=== PATIENT | female | born 1950 | race Caucasian/White ===

== ENCOUNTER 2016-08-01 10:18 | Outpatient (CLI) | payer MEDICARE, OTHER | END 2016-08-01 10:19 | disposition home or self-care (01) | DX: E04.2 Nontoxic multinodular goiter (principal) ==

== ENCOUNTER 2016-09-15 10:26 | Outpatient (CLI) | payer MEDICARE, OTHER | END 2016-09-15 10:27 | disposition home or self-care (01) | DX: E78.5 Hyperlipidemia, unspecified (principal); R73.01 Impaired fasting glucose; Z13.6 Encounter for screening for cardiovascular disorders; R53.83 Other fatigue; R19.6 Halitosis ==

== ENCOUNTER 2017-02-03 14:42 | Emergency (ER) | payer MEDICARE, OTHER ==
--- NOTE | 2017-02-03 16:13 | XRAY Preliminary Report ---
Exam: XR Femur 2V LT IMPRESSION: Negative left femur. [facility] SITE ID: [id number]
--- NOTE | 2017-02-03 16:15 | XRAY Report ---
EXAM: LEFT FEMUR RADIOGRAPHY EXAM DATE: 02/03/2017 04:05 PM. CLINICAL HISTORY: Injury swelling . COMPARISON: None. TECHNIQUE: 2 views. FINDINGS: Bones: No fracture or bony destruction. Joints: The visualized hip and knee joints are normal. No effusions. Soft Tissues: Normal. No soft tissue swelling. IMPRESSION: Negative left femur. [facility] Referring Provider Line: [phone] SITE ID: [id number]
--- NOTE | 2017-02-03 17:02 | ED Physician Documentation ---
PD HPI LOWER EXT INJURY - Stated complaint Stated Complaint: GLF LT LEG/ARM - Chief complaint Chief Complaint: Ext Problem - History obtained from History obtained from: Patient - History of Present Illness PD HPI LOW EXT INJURY LOCATION: Left, Upper leg, Ankle Type of injury: Fall (she was looking up at gutters as she was standing on deck , lost balance and fell hard on railing striking thigh initially.) Where injury occurred: Home Timing - onset: Today Associated symptoms: Weakness Contributing factors: No: Anticoagulated, Prior ortho surgery Similar symptoms before: No diagnosis Recently seen: Not recently seen Review of Systems Constitutional: denies: Fever, Chills Eyes: reports: Photophobia Ears: reports: Loss of hearing Nose: reports: Congestion. denies: Rhinorrhea / runny nose : denies: Dysuria, Frequency Neurologic: reports: Generalized weakness, Numbness, Head injury, Reviewed and negative. denies: Focal weakness Psychiatric: denies: Depressed Endocrine: denies: Polyuria PD PAST MEDICAL HISTORY - Past Medical History Cardiovascular: High cholesterol Endocrine/Autoimmune: HyPOthyroidism - Past Surgical History Past Surgical History: No - Present Medications Home Medications: Ambulatory Orders Medication Instructions Recorded Confirmed Atorvastatin Calcium [Lipitor] 20 mg PO DAILY 03/16/13 03/16/13 Cetirizine [ZyrTEC] 10 mg PO DAILY 03/16/13 03/16/13 Fluticasone [Flonase] 1 sprays FABIAN BID 03/16/13 03/16/13 Levothyroxine [Synthroid] 88 mcg PO DAILY 03/16/13 03/16/13 Omeprazole 10 mg PO DAILY 03/16/13 03/16/13 Ondansetron Odt [Zofran] 4 mg TL Q6H PRN #10 tablet 03/16/13 HYDROcod/ACETAM 5/325 [Ririe 5/325] 1 tab PO Q6H PRN #15 tablet 02/03/17 - Allergies Allergies/Adverse Reactions: Allergies Allergy/AdvReac Type Severity Reaction Status Date / Time Sulfa (Sulfonamide Allergy Rash Verified 02/03/17 15:00 Antibiotics) promethazine HCl * AdvReac Hallucinati Verified 02/03/17 15:00 [From Phenergan] ons - Social History Does the pt smoke?: No Smoking Status: Never smoker Does the pt drink ETOH?: Yes Does the pt have substance abuse?: No - Immunizations Immunizations are current?: No - POLST Patient has POLST: No PD ED PE NORMAL - Vitals Vital signs reviewed: Yes - General General: Alert and oriented X 3, Well developed/nourished - HEENT HEENT: Dentition benign - Neck Neck: Supple, no meningeal sign, No bony TTP, Thyroid normal, No bruit - Cardiac Cardiac: No murmur Results - Vitals Vitals: Oxygen O2 Source Room air - Rads (name of study) left thigh Radiology: Prelim report reviewed (no fractures) left foot Radiology: Prelim report reviewed (no fractures) PD MEDICAL DECISION MAKING - ED course Complexity details: reviewed results, considered differential, d/w patient Departure - Departure Disposition: 01 Home, Self Care Clinical Impression: Accidental fall Qualifiers: Encounter type: initial encounter Qualified Code(s): W19.XXXA - Unspecified fall, initial encounter Contusion, thigh Qualifiers: Encounter type: initial encounter Laterality: left Qualified Code(s): S70.12XA - Contusion of left thigh, initial encounter Contusion, foot Qualifiers: Encounter type: initial encounter Laterality: left Qualified Code(s): S90.32XA - Contusion of left foot, initial encounter Condition: Stable Record reviewed to determine appropriate education?: Yes Instructions: ED Contusion Lower Ext Prescriptions: HYDROcod/ACETAM 5/325 [Ririe 5/325] 1 tab PO Q6H PRN #15 tablet PRN Reason: Pain Comments: No fracture seen on x-ray. The contusions will hurt for several days to week or so. They likely will bruise around the injuries more and on the thigh might even show up around the knee area to gravity. Ice and cold towels to the area periodically tonight and tomorrow. Activity as able. Tylenol or ibuprofen as needed for pains. Add hydrocodone if needed. This should less over the first couple of days as the swelling goes down. Discharge Date/Time: 02/03/17 18:26
--- NOTE | 2017-02-03 17:38 | XRAY Preliminary Report ---
Exam: XR Ankle 3 View LT IMPRESSION: Soft tissue swelling. [facility] SITE ID: [id number]
[2017-02-03] MEDS ORDERED: HYDROcod/ACETAM 5/325 MG TABLET PO STA (17:41)
--- NOTE | 2017-02-03 17:41 | XRAY Report ---
EXAM: LEFT ANKLE RADIOGRAPHY EXAM DATE: 02/03/2017 05:23 PM. CLINICAL HISTORY: Fall, pain. COMPARISON: None. TECHNIQUE: 3 views. FINDINGS: Bones: Osteopenia. Mid to distal tibial cortical thickening most likely due to old fracture, incomple tely seen. No acute fracture or other bone lesion. Joints: Symmetrical mortise. No definite effusion. Soft Tissues: Mild soft tissue swelling over the malleoli, especially lateral malleolus. IMPRESSION: Soft tissue swelling. [facility] Referring Provider Line: [phone] SITE ID: [id number]
[2017-02-03 18:20] VITALS: BP 135/89
[2017-02-03] MEDS ORDERED: HYDROcod/ACETAM 5/325 MG TABLET ONE (18:25)
== END 2017-02-03 18:26 | disposition home or self-care (01) ==
LOC: ED 14:42
DX: S70.12XA Contusion of left thigh, initial encounter (principal); S90.32XA Contusion of left foot, initial encounter; W18.30XA Fall on same level, unspecified, initial encounter; Y93.89 Activity, other specified; Y92.007 Garden or yard of unspecified non-institutional (private) residence as the place of occurrence of the external cause; E78.00 Pure hypercholesterolemia, unspecified; E03.9 Hypothyroidism, unspecified
CPT/HCPCS: 73552; 73610; 99283; A9270

== ENCOUNTER 2017-06-08 08:00 | Outpatient (CLI) | payer MEDICARE, OTHER ==
[2017-06-08 18:07] LABS: BILIRUBIN,URINE NEGATIVE (NEGATIVE); GLUCOSE, URINE (UA) NEGATIVE (NEGATIVE); KETONES,URINE (UA) NEGATIVE (NEGATIVE); LEUKOCYTE ESTERASE, URINE MODERATE (NEGATIVE); NITRITE,URINE NEGATIVE (NEGATIVE); OCCULT BLOOD,URINE NEGATIVE (NEGATIVE); PH,URINE 5.5 PH (5.0-7.5); PROTEIN,URINE NEGATIVE (NEGATIVE); UROBILINOGEN,URINE 0.2 (NORMAL) E.U./dL (NORMAL)
[2017-06-08 18:12] LABS: BASOPHILS % (AUTO) 0.9 %; EOSINOPHILS # (AUTO) 0.2 10^3/uL (0.0-0.7); EOSINOPHILS % (AUTO) 3.4 %; LYMPHOCYTES # (AUTO) 2.1 10^3/uL (1.5-3.5); LYMPHOCYTES % (AUTO) 41.9 %; MEAN CORPUSCULAR HEMOGLOBIN 28.9 pg (27.0-31.0); MEAN CORPUSCULAR HGB CONC 33.3 g/dL (32.0-36.0); MEAN CORPUSCULAR VOLUME 86.7 fL (81.0-99.0); MEAN PLATELET VOLUME 8.7 fL (7.9-10.8); MONOCYTES # (AUTO) 0.4 10^3/uL (0.0-1.0); MONOCYTES % (AUTO) 8.9 %; NEUTROPHILS # (AUTO) 2.2 10^3/uL (1.5-6.6); NEUTROPHILS % (AUTO) 44.9 %; PLT - PLATELET COUNT 227 10^3/uL (130-450); RED BLOOD COUNT 4.51 10^6/uL (4.20-5.40); RED CELL DISTRIBUTION WIDTH 14.8 % (12.0-15.0); WHITE BLOOD COUNT 4.9 x10^3/uL (4.8-10.8)
[2017-06-08 18:14] LABS: BACTERIA,URINE Few /HPF (None Seen); CLARITY,URINE CLEAR (CLEAR); RBC,URINE 0-5 /HPF (0-5); SQUAMOUS EPITHELIAL CELL,UR FEW Squamous (<= Few)
[2017-06-08 18:52] LABS: ALBUMIN 4.4 g/dL (3.2-5.5); ALBUMIN/GLOBULIN RATIO 1.5 (1.0-2.2); ALKALINE PHOSPHATASE 42 IU/L (42-121); ALT ALANINE AMINOTRANSFERASE 40 IU/L (10-60); AST ASPARTATE AMINOTRANSFERASE 28 IU/L (10-42); BILIRUBIN,TOTAL 0.5 mg/dL (0.2-1.0); BUN - BLOOD UREA NITROGEN 16 mg/dL (6-20); CALCIUM 9.2 mg/dL (8.5-10.3); CARBON DIOXIDE - CO2 27 mmol/L (21-32); CHLORIDE 101 mmol/L (101-111); CHOL/HDL RATIO 3.7 (<4.4); CHOLESTEROL 240 mg/dL; CREATININE 0.8 mg/dL (0.4-1.0); GFR - MDRD 71 (>89); GLUCOSE 99 mg/dL (70-100); HDL CHOLESTEROL 65 mg/dL; LDL CHOLESTEROL,CALCULATED 140 mg/dL; LDL/HDL RATIO 2.2 (<4.4); SODIUM 136 mmol/L (135-145); TOTAL PROTEIN 7.3 g/dL (6.7-8.2); VLDL CHOLESTEROL 35 mg/dL
[2017-06-08 19:22] LABS: HB2 TOTAL 14.3 g/dL; HEMOGLOBIN A1C 0.55 g/dL; HEMOGLOBIN A1C % 5.7 % (4.6-6.2)
== END 2017-06-08 08:01 | disposition home or self-care (01) ==
LOC: LAB.S 08:00
PROVIDERS: ATTEND Nurse Practitioner Family
DX: R35.8 Other polyuria (principal); E78.5 Hyperlipidemia, unspecified; E03.9 Hypothyroidism, unspecified; R73.01 Impaired fasting glucose
CPT/HCPCS: 36415; 80053; 80061; 81001; 81003; 83036; 83721; 84443; 85025; 87086

== ENCOUNTER 2017-08-03 10:31 | Outpatient (CLI) | payer MEDICARE, OTHER | END 2017-08-03 10:32 | disposition home or self-care (01) | LOC: LAB.F 10:31 | PROVIDERS: ATTEND Internal Medicine Endocrinology, Diabetes & Metabolism | DX: E89.0 Postprocedural hypothyroidism (principal); E04.2 Nontoxic multinodular goiter | CPT/HCPCS: 36415; 84443 ==

== ENCOUNTER 2017-08-27 08:00 | Outpatient (CLI) | payer MEDICARE, OTHER ==
[2017-08-27 17:38] LABS: BILIRUBIN,URINE NEGATIVE (NEGATIVE); GLUCOSE, URINE (UA) NEGATIVE (NEGATIVE); KETONES,URINE (UA) NEGATIVE (NEGATIVE); LEUKOCYTE ESTERASE, URINE MODERATE (NEGATIVE); NITRITE,URINE NEGATIVE (NEGATIVE); OCCULT BLOOD,URINE NEGATIVE (NEGATIVE); PROTEIN,URINE NEGATIVE (NEGATIVE); UROBILINOGEN,URINE 0.2 (NORMAL) E.U./dL (NORMAL)
[2017-08-27 17:46] LABS: CLARITY,URINE CLEAR (CLEAR)
[2017-08-27 17:47] LABS: BACTERIA,URINE Rare /HPF (None Seen); CRYSTALS,URINE 11-25 Ca Oxalate /LPF; RBC,URINE 0-5 /HPF (0-5); SQUAMOUS EPITHELIAL CELL,UR MOD Squamous (<= Few)
== END 2017-08-27 08:01 | disposition home or self-care (01) ==
LOC: LAB.R 08:00
PROVIDERS: ATTEND Nurse Practitioner Family
DX: R35.8 Other polyuria (principal)
CPT/HCPCS: 81001; 87086

== ENCOUNTER 2017-12-11 12:28 | Outpatient (CLI) | payer MEDICARE, OTHER ==
[2017-12-11 18:03] LABS: THYROID STIMULATING HORMONE 1.34 uIU/mL (0.34-5.60)
[2017-12-11 18:05] LABS: FREE T4 (FREE THYROXINE) 0.95 ng/dL (0.58-1.64)
== END 2017-12-11 12:29 | disposition home or self-care (01) ==
LOC: LAB.F 12:28
PROVIDERS: ATTEND Internal Medicine Endocrinology, Diabetes & Metabolism
DX: E03.9 Hypothyroidism, unspecified (principal); E04.2 Nontoxic multinodular goiter
CPT/HCPCS: 36415; 84439; 84443

== ENCOUNTER 2018-06-04 09:28 | Outpatient (CLI) | payer MEDICARE, OTHER ==
[2018-06-04 18:29] LABS: BASOPHILS # (AUTO) 0.1 10^3/uL (0.0-0.1); BASOPHILS % (AUTO) 1.4 %; EOSINOPHILS # (AUTO) 0.3 10^3/uL (0.0-0.7); EOSINOPHILS % (AUTO) 6.3 %; HGB - HEMOGLOBIN 13.2 g/dL (12.0-16.0); MEAN CORPUSCULAR HEMOGLOBIN 30.1 pg (27.0-31.0); MEAN CORPUSCULAR VOLUME 91.3 fL (81.0-99.0); MEAN PLATELET VOLUME 8.2 fL (7.9-10.8); MONOCYTES # (AUTO) 0.4 10^3/uL (0.0-1.0); MONOCYTES % (AUTO) 9.6 %; NEUTROPHILS # (AUTO) 1.8 10^3/uL (1.5-6.6); NEUTROPHILS % (AUTO) 39.7 %; PLT - PLATELET COUNT 229 10^3/uL (130-450); RED BLOOD COUNT 4.39 10^6/uL (4.20-5.40); RED CELL DISTRIBUTION WIDTH 13.3 % (12.0-15.0); WHITE BLOOD COUNT 4.6 x10^3/uL (4.8-10.8)
[2018-06-04 19:12] LABS: ALBUMIN 4.4 g/dL (3.2-5.5); ALBUMIN/GLOBULIN RATIO 1.6 (1.0-2.2); ALKALINE PHOSPHATASE 44 IU/L (42-121); ALT ALANINE AMINOTRANSFERASE 52 IU/L (10-60); AST ASPARTATE AMINOTRANSFERASE 33 IU/L (10-42); BILIRUBIN,TOTAL 0.7 mg/dL (0.2-1.0); BUN - BLOOD UREA NITROGEN 17 mg/dL (6-20); CHOLESTEROL 206 mg/dL; CREATININE 0.8 mg/dL (0.4-1.0); GFR - MDRD 71 (>89); HDL CHOLESTEROL 68 mg/dL; LDL CHOLESTEROL,CALCULATED 115 mg/dL; LDL/HDL RATIO 1.7 (<4.4); TOTAL PROTEIN 7.1 g/dL (6.7-8.2); VLDL CHOLESTEROL 23 mg/dL
[2018-06-04 19:17] LABS: CALCIUM 9.2 mg/dL (8.5-10.3); CARBON DIOXIDE - CO2 28 mmol/L (21-32); CHLORIDE 101 mmol/L (101-111); GLUCOSE 114 mg/dL (70-100); SODIUM 136 mmol/L (135-145)
== END 2018-06-04 09:29 | disposition home or self-care (01) ==
LOC: LAB.F 09:28
PROVIDERS: ATTEND Nurse Practitioner Family
DX: E78.5 Hyperlipidemia, unspecified (principal); Z13.6 Encounter for screening for cardiovascular disorders; Z13.0 Encounter for screening for diseases of the blood and blood-forming organs and certain disorders involving the immune mechanism
CPT/HCPCS: 36415; 80053; 80061; 83721; 85025

== ENCOUNTER 2018-06-08 09:58 | Outpatient (CLI) | payer MEDICARE, OTHER ==
[2018-06-08 18:01] LABS: HB2 TOTAL 14.3 g/dL; HEMOGLOBIN A1C 0.55 g/dL; HEMOGLOBIN A1C % 5.7 % (4.6-6.2)
== END 2018-06-08 09:59 | disposition home or self-care (01) ==
LOC: LAB.F 09:58
PROVIDERS: ATTEND Nurse Practitioner Family
DX: R73.9 Hyperglycemia, unspecified (principal); E03.9 Hypothyroidism, unspecified
CPT/HCPCS: 36415; 83036; 84443

== ENCOUNTER 2018-09-06 15:05 | Outpatient (CLI) | payer MEDICARE, OTHER ==
[2018-09-06 18:58] LABS: ALBUMIN/GLOBULIN RATIO 1.7 (1.0-2.2); BILIRUBIN,TOTAL 0.9 mg/dL (0.2-1.0); CALCIUM 9.5 mg/dL (8.5-10.3); CREATININE 0.7 mg/dL (0.4-1.0); MAGNESIUM 2.3 mg/dL (1.7-2.8)
== END 2018-09-06 15:06 | disposition home or self-care (01) ==
LOC: LAB.F 15:05
PROVIDERS: ATTEND Nurse Practitioner Adult Health
DX: K21.0 Gastro-esophageal reflux disease with esophagitis (principal)
CPT/HCPCS: 36415; 80053; 82607; 83735

== ENCOUNTER 2018-09-09 10:34 | Outpatient (CLI) | payer MEDICARE, OTHER ==
[2018-09-09 17:32] LABS: HB2 TOTAL 13.7 g/dL; HEMOGLOBIN A1C 0.58 g/dL
== END 2018-09-09 10:35 | disposition home or self-care (01) ==
LOC: LAB.F 10:34
PROVIDERS: ATTEND Nurse Practitioner
DX: R73.01 Impaired fasting glucose (principal)
CPT/HCPCS: 36415; 83036

== ENCOUNTER 2019-03-11 14:20 | Outpatient (CLI) | payer MEDICARE, OTHER ==
[2019-03-11 19:27] LABS: HB2 TOTAL 13.3 g/dL; HEMOGLOBIN A1C 0.52 g/dL; HEMOGLOBIN A1C % 5.7 % (4.6-6.2)
== END 2019-03-11 14:21 | disposition home or self-care (01) ==
LOC: LAB.S 14:20
PROVIDERS: ATTEND Registered Nurse
DX: R73.9 Hyperglycemia, unspecified (principal)
CPT/HCPCS: 36415; 83036

== ENCOUNTER 2020-05-22 16:37 | Outpatient (CLI) | payer MEDICARE, OTHER ==
[2020-05-22] MEDS ORDERED: IOVERSOL 320 100 ML VIAL IVP ONE ×2 (16:57→20:34)
[2020-05-22] MEDS ORDERED: IOVERSOL 320 50 ML VIAL ONE (16:57)
[2020-05-22 17:07] LABS: BASOPHILS # (AUTO) 0.1 10^3/uL (0.0-0.1); BASOPHILS % (AUTO) 0.7 %; EOSINOPHILS % (AUTO) 0.3 %; HGB - HEMOGLOBIN 13.7 g/dL (12.0-16.0); LYMPHOCYTES # (AUTO) 1.7 10^3/uL (1.5-3.5); LYMPHOCYTES % (AUTO) 22.4 %; MEAN CORPUSCULAR HGB CONC 34.7 g/dL (32.0-36.0); MEAN CORPUSCULAR VOLUME 89.4 fL (81.0-99.0); MEAN PLATELET VOLUME 9.6 fL (7.9-10.8); MONOCYTES # (AUTO) 0.4 10^3/uL (0.0-1.0); MONOCYTES % (AUTO) 5.3 %; NEUTROPHILS # (AUTO) 5.2 10^3/uL (1.5-6.6); PLT - PLATELET COUNT 233 10^3/uL (130-450); RED BLOOD COUNT 4.42 10^6/uL (4.20-5.40); RED CELL DISTRIBUTION WIDTH 12.7 % (12.0-15.0); WHITE BLOOD COUNT 7.4 x10^3/uL (4.8-10.8)
[2020-05-22 17:17] LABS: ALBUMIN/GLOBULIN RATIO 1.8 (1.0-2.2); BILIRUBIN,TOTAL 1.2 mg/dL (0.2-1.0); CALCIUM 9.5 mg/dL (8.5-10.3); CREATININE 0.9 mg/dL (0.4-1.0); CRP - C-REACTIVE PROTEIN 1.2 mg/dL (0-1.0); TOTAL PROTEIN 7.8 g/dL (6.7-8.2)
--- NOTE | 2020-05-22 18:57 | CT Report ---
PROCEDURE: Abdomen/Pelvis W INDICATIONS: RT LOWER QUAD ABD PAIN CONTRAST: IV CONTRAST: Optiray 320 ml: 100 PO CONTRAST: Optiray 320 ml50 TECHNIQUE: After the administration of both oral and weight appropriate dose of intravenous contrast, 5 mm thick sections acquired from the diaphragms to the symphysis. 5 mm thick coronal and sagittal reformats w ere acquired. For radiation dose reduction, the following was used: automated exposure control, adj ustment of mA and/or kV according to patient size. COMPARISON: None. FINDINGS: Image quality: Excellent. ABDOMEN: Lung bases: Lung bases are clear. Heart size is normal. Solid organs: Liver and spleen are normal in size and enhancement. Diffuse hepatic steatosis. Gallbl adder contains multiple layering gallstones without CT evidence for acute cholecystitis. Specifically , no gallbladder wall thickening or pericholecystic stranding. Biliary system is non dilated. Pancr eas enhances normally. No adrenal nodules. Kidneys demonstrate normal size and enhancement, without hydronephrosis. Bilateral ureters are normal in course and caliber. Peritoneum and bowel: Scattered colonic diverticulosis without acute inflammatory changes. Bowel loop s demonstrate normal wall thickness and caliber. Normal appendix. No free fluid or air. Nodes and vessels: No retroperitoneal or mesenteric adenopathy by size criteria. Aorta and inferior vena cava are normal in size. Scattered atherosclerotic calcifications of the abdominal aorta and i liac vessels. Miscellaneous: No ventral hernias. PELVIS: Genitourinary: Bladder wall thickness is normal for degree of distention. Reproductive organs unrem arkable as imaged. Miscellaneous: No inguinal hernias or adenopathy. Bones: No suspicious bony lesions. No acute vertebral body compression fractures. Multilevel lumba r spondylosis. IMPRESSION: 1. CT abdomen and pelvis without acute abnormalities. 2. Cholelithiasis without CT evidence for acute cholecystitis. 3. Normal appendix. 4. Colonic diverticulosis without evidence for acute diverticulitis. 5. Hepatic steatosis. 6. Atherosclerotic calcifications of the abdominal aorta without aneurysmal dilatation. 7. Multilevel lumbar spondylosis. No acute osseous abnormality seen. Reviewed by: Apollo Cruz MD on 05/22/2020 5:56 PM AKST Approved by: Apollo Cruz MD on 05/22/2020 5:56 PM [place] Station ID: [id number]
[2020-05-22] MEDS ORDERED: IOVERSOL 320 50 ML VIAL PO ONE (20:34)
--- OUTSIDE RECORDS SUMMARY | 2020-05-23 04:53 | EXTERNAL MEDICAL SUMMARY RPT | Continuity of Care Document ---
:1950 Demographics Phone Unavailable Preferred Language Unknown Marital Status Unknown Catholic Affiliation Unknown Race Unknown Ethnic Group Unknown Author Organization [facility] Address [address] [phone] Phone Care Team Providers Name Role Phone MARY, DANIAL Unavailable Unavailable Problems date description facility 2020-05-22 16:37 RIGHT LOWER QUADRANT PAIN [facility] 2020-05-22 16:45 RIGHT LOWER QUADRANT PAIN [facility] 2020-05-22 17:45 RIGHT LOWER QUADRANT PAIN [facility] Allergies date description facility promethazine HCl * [facility] Sulfa (Sulfonamide Antibiotics) formerly [facility] Results Social History date description facility [id number]
== END 2020-05-22 16:38 | disposition home or self-care (01) ==
LOC: LAB 16:37 → DI 16:38
PROVIDERS: ATTEND Nurse Practitioner Family
DX: R10.31 Right lower quadrant pain (principal); K80.20 Calculus of gallbladder without cholecystitis without obstruction; K76.0 Fatty (change of) liver, not elsewhere classified; K57.30 Diverticulosis of large intestine without perforation or abscess without bleeding; M47.816 Spondylosis without myelopathy or radiculopathy, lumbar region
CPT/HCPCS: 36415; 74177; 80053; 85025; 85651; 86140; Q9967

== ENCOUNTER 2020-05-24 13:04 | Emergency (ER) | payer MEDICARE, OTHER ==
[2020-05-24 14:14] LABS: BASOPHILS % (AUTO) 0.6 %; EOSINOPHILS # (AUTO) 0.1 10^3/uL (0.0-0.7); LYMPHOCYTES # (AUTO) 2.1 10^3/uL (1.5-3.5); LYMPHOCYTES % (AUTO) 30.7 %; MEAN CORPUSCULAR HEMOGLOBIN 31.1 pg (27.0-31.0); MEAN CORPUSCULAR HGB CONC 34.1 g/dL (32.0-36.0); MEAN CORPUSCULAR VOLUME 91.1 fL (81.0-99.0); MEAN PLATELET VOLUME 9.6 fL (7.9-10.8); MONOCYTES # (AUTO) 0.5 10^3/uL (0.0-1.0); MONOCYTES % (AUTO) 6.7 %; NEUTROPHILS # (AUTO) 4.2 10^3/uL (1.5-6.6); NEUTROPHILS % (AUTO) 60.9 %; PLT - PLATELET COUNT 216 10^3/uL (130-450); RED BLOOD COUNT 4.18 10^6/uL (4.20-5.40)
[2020-05-24 14:23] LABS: ALBUMIN 4.6 g/dL (3.2-5.5); ALBUMIN/GLOBULIN RATIO 1.6 (1.0-2.2); BILIRUBIN,TOTAL 0.8 mg/dL (0.2-1.0); CALCIUM 9.7 mg/dL (8.5-10.3); CREATININE 0.9 mg/dL (0.4-1.0); TOTAL PROTEIN 7.4 g/dL (6.7-8.2)
[2020-05-24] MEDS ORDERED: predniSONE 20 MG TABLET PO STA (16:24)
--- NOTE | 2020-05-24 16:33 | ED Physician Documentation ---
History of Present Illness - Stated complaint Stated Complaint: BACK PX - Chief complaint Chief Complaint: Abd Pain - Additonal information Additional information: 70-year-old female presents the emergency department for evaluation of right s ided abdominal hip and back pain. She presents very tearful and requesting an MRI of her lumbar spine she states that she has a history of an L4 compression fracture. She has been seen by her primary care provider and had a CT scan of her abdomen completed yesterday. It did show cholelithiasis without findings of cholecystitis. There was a normal appendix. No findings were otherwise found. Over the last 2 weeks this right-sided back and abdominal pain has gotten progressively worse. Typically worse when sitting it improves when she stands walks or lays flat in bed she did take some Dilaudid that was a leftover prescription without relief of pain. She is convinced that she has a neuropathic pain and has intermittently been taking ibuprofen occasional doses of gabapentin as well as Tylenol and Dilaudid without relief. She states that for a long time she saw a chiropractor as she had a difficulty with her puriform muscle and her right hip. She is unsure if this is related She denies any fevers dysuria urgency or frequency. She has no vomiting. She is hopeful that when she may get a prescription of steroids and follow-up with her primary care provider. She has no saddle anesthesia urinary incontinence. No history of cancer. In the room she is ambulating without any difficulty Review of Systems Constitutional: reports: Reviewed and negative Eyes: reports: Reviewed and negative Ears: reports: Reviewed and negative Nose: reports: Reviewed and negative Throat: reports: Reviewed and negative Cardiac: reports: Reviewed and negative Respiratory: reports: Reviewed and negative GI: reports: Abdominal Pain. denies: Nausea, Vomiting, Constipation, Diarrhea, Hematemesis : denies: Dysuria, Frequency, Hesitancy Skin: denies: Rash, Lesions Musculoskeletal: reports: Back pain. denies: Extremity pain, Joint pain PD PAST MEDICAL HISTORY - Past Medical History Cardiovascular: High cholesterol Endocrine/Autoimmune: HyPOthyroidism - Past Surgical History Past Surgical History: No - Present Medications Home Medications: Ambulatory Orders Medication Instructions Recorded Confirmed Atorvastatin Calcium [Lipitor] 20 mg PO DAILY 03/16/13 05/24/20 Cetirizine [ZyrTEC] 10 mg PO DAILY 03/16/13 05/24/20 Fluticasone [Flonase] 1 sprays FABIAN BID 03/16/13 05/24/20 Levothyroxine [Synthroid] 88 mcg PO DAILY 03/16/13 05/24/20 Omeprazole 10 mg PO DAILY 03/16/13 05/24/20 predniSONE [Deltasone] 40 mg PO DAILY #8 tab 05/24/20 - Allergies Allergies/Adverse Reactions: Allergies Allergy/AdvReac Type Severity Reaction Status Date / Time Sulfa (Sulfonamide Allergy Rash Verified 05/24/20 13:07 Antibiotics) promethazine HCl * AdvReac Hallucinati Verified 05/24/20 13:07 [From Phenergan] ons - Social History Does the pt smoke?: No Smoking Status: Never smoker Does the pt drink ETOH?: Yes Does the pt have substance abuse?: No - Immunizations Immunizations are current?: No - POLST Patient has POLST: No PD ED PE EXPANDED - General General: Alert, Anxious (crying) - Neck Neck: Supple w/out meningeal sx. No: Adenopathy - Cardiac Cardiac: Regular Rate, Regular Rhythm, Radial strong equal, Pedal strong equal, Cap refill < 2 sec - Respiratory Respiratory: Clear to ausultation bindu. No: Distress, Labored - Abdomen Abdomen: Normal Bowel sounds. No: Tender to palpation - Back Back: Soft tissue tenderness (Unable to elicit any midline thoracic or lumbar vertebral tenderness. Mild right paraspinous tenderness elicited. Patient has a normal unassisted gait.). No: Vertebral tenderness, Straight leg raise + R, Straight leg raise + L - Derm Derm: Normal color. No: Rash - Extremities Extremities: Normal. No: Deformity, Tenderness - Neuro Neuro: Alert and Oriented X 3, CNII-XII intact - GCS Eye Opening: Spontaneous Motor: Obeys Commands Verbal: Oriented Total: 15 Results - Vitals Vitals: Vital Signs - 24 hr 05/24/20 13:09 Temperature 36.8 C Heart Rate 60 Respiratory 18 Rate Blood Pressure 144/75 H O2 Saturation 99 Oxygen O2 Source Room air - Labs Labs: Laboratory Tests 05/24/20 05/24/20 14:05 14:05 WBC 7.0 RBC 4.18 L Hgb 13.0 Hct 38.1 MCV 91.1 MCH 31.1 H MCHC 34.1 RDW 13.0 Plt Count 216 MPV 9.6 Neut # (Auto) 4.2 Lymph # (Auto) 2.1 Baldwin # (Auto) 0.5 Eos # (Auto) 0.1 Baso # (Auto) 0.0 Absolute Nucleated RBC 0.00 Nucleated RBC % 0.0 Sodium 138 Potassium 4.4 Chloride 99 L Carbon Dioxide 28 Anion Gap 11.0 BUN 10 Creatinine 0.9 Estimated GFR (MDRD) 62 L Glucose 110 H Calcium 9.7 Total Bilirubin 0.8 AST 26 ALT 27 Alkaline Phosphatase 49 Total Protein 7.4 Albumin 4.6 Globulin 2.8 Albumin/Globulin Ratio 1.6 Lipase 38 PD MEDICAL DECISION MAKING - ED course Complexity details: reviewed results, re-evaluated patient, considered differential, d/w patient ED course: 70-year-old female presents to the emergency department for evaluation of right- sided back pain and right-sided abdominal pain. She underwent a CT scan yesterday that did not show any acute surgical findings. She reports a history of L4 compression fracture and was hoping to obtain an MRI here in the emergency department. However I was unable to elicit any back pain on my exam and she has no clinical red flags. unassisted walk/gait. She does report a longstanding history of piriform pain and has previously been seen by a chiropractor. She is concerned that she is having nerve pain from her compression fracture. Emergent MRI is not warranted today. She was given a shot of Toradol with marked relief of pain. I will write a prescription for a 4-day course of prednisone to be used at home. I do not feel that she would benefit from further use of the Dilaudid that she has been using at home. I have recommended her to follow-up with her primary care provider to discuss if a MRI of her lumbar spine is warranted in the future. Departure - Departure Disposition: Home, Self Care Clinical Impression: Abdominal pain Qualifiers: Abdominal location: right lower quadrant Qualified Code(s): R10.31 - Right lower quadrant pain Right-sided back pain Qualifiers: Back pain location: back pain in unspecified location Chronicity: acute Qualified Code(s): M54.9 - Dorsalgia, unspecified Condition: Stable Record reviewed to determine appropriate education?: Yes Follow-Up: DANIAL HERNANDEZ ARNP [Primary Care Provider] - Prescriptions: predniSONE [Deltasone] 40 mg PO DAILY #8 tab Comments: I hope that you are feeling better soon. You were seen today for right-sided back and abdominal pain. The CAT scan completed yesterday did not show any worrisome findings. Your labs today were all essentially normal. It is possible that you are having some nerve pain originating from your lumbar spine. However you may also be having some pain associated with your hip and piriformis muscle. You were given an injection of Toradol here in the emergency department. I would like you to take the prednisone daily for the next 4 days. While taking the prednisone do not take other medications such as ibuprofen Aleve naproxen or Advil. Once you finish the prednisone you may then resume taking that kind of medication. I would like you to see your primary care doctor in follow-up of this visit. An MRI of your spine is not indicated today but it may be as an outpatient. If at any point you have numbness or tingling between your legs, cannot control your bowel or bladder function, have fevers, uncontrolled vomiting, chest pain or shortness of breath please return to the ER for second look
[2020-05-24] MEDS ORDERED: KETOROLAC 60 MG/2 ML VIAL IM STA (17:09)
[2020-05-24 17:51] VITALS: BP 126/81
== END 2020-05-24 17:35 | disposition home or self-care (01) ==
LOC: ED 13:04
DX: M54.9 Dorsalgia, unspecified (principal); R10.31 Right lower quadrant pain
CPT/HCPCS: 36415; 80053; 83690; 85025; 96372; 99283; 99284; J7512

== ENCOUNTER 2020-09-12 12:06 | Outpatient (CLI) | payer MEDICARE, OTHER | END 2020-09-12 12:07 | disposition home or self-care (01) | LOC: LAB.S 12:06 | PROVIDERS: ATTEND Nurse Practitioner Family | DX: E03.9 Hypothyroidism, unspecified (principal) | CPT/HCPCS: 36415; 84443 ==

== ENCOUNTER 2020-09-20 09:01 | Outpatient (CLI) | payer MEDICARE, OTHER | END 2020-09-20 09:02 | disposition home or self-care (01) | LOC: LAB.S 09:01 | PROVIDERS: ATTEND Nurse Practitioner Family | DX: E88.81 Metabolic syndrome and other insulin resistance (principal); R53.83 Other fatigue | CPT/HCPCS: 36415; 80053; 83036; 85025; 86140 ==

== ENCOUNTER 2020-10-24 08:30 | Outpatient (CLI) | payer MEDICARE, OTHER ==
[2020-10-24 16:30] LABS: THYROID STIMULATING HORMONE 0.11 uIU/mL (0.34-5.60)
[2020-10-24 16:32] LABS: FREE T4 (FREE THYROXINE) 1.13 ng/dL (0.58-1.64)
== END 2020-10-24 08:31 | disposition home or self-care (01) ==
LOC: LAB.S 08:30
PROVIDERS: ATTEND Internal Medicine
DX: E88.81 Metabolic syndrome and other insulin resistance (principal); E03.9 Hypothyroidism, unspecified
CPT/HCPCS: 36415; 83036; 84439; 84443

== ENCOUNTER 2020-12-28 11:41 | Outpatient (CLI) | payer MEDICARE, OTHER ==
[2020-12-28 15:07] LABS: THYROID STIMULATING HORMONE 0.83 uIU/mL (0.34-5.60)
[2020-12-28 15:08] LABS: FREE T4 (FREE THYROXINE) 1.1 ng/dL (0.58-1.64)
[2020-12-28 17:18] LABS: ESTIMATED AVERAGE GLUCOSE 117 mg/dL (70-100); HEMOGLOBIN A1c% 5.7 % (4.27-6.07)
== END 2020-12-28 11:42 | disposition home or self-care (01) ==
LOC: LAB.S 11:41
PROVIDERS: ATTEND Internal Medicine
DX: E03.9 Hypothyroidism, unspecified (principal); R73.9 Hyperglycemia, unspecified
CPT/HCPCS: 36415; 83036; 84439; 84443

== ENCOUNTER 2021-01-09 08:09 | Outpatient (CLI) | payer MEDICARE, OTHER ==
[2021-01-09 15:19] LABS: ALBUMIN 4.4 g/dL (3.2-5.5); ALBUMIN/GLOBULIN RATIO 1.5 (1.0-2.2); ALKALINE PHOSPHATASE 50 IU/L (42-121); ALT ALANINE AMINOTRANSFERASE 23 IU/L (10-60); AST ASPARTATE AMINOTRANSFERASE 23 IU/L (10-42); BILIRUBIN,TOTAL 0.7 mg/dL (0.2-1.0); BUN - BLOOD UREA NITROGEN 15 mg/dL (6-20); CALCIUM 9.4 mg/dL (8.5-10.3); CARBON DIOXIDE - CO2 29 mmol/L (21-32); CHLORIDE 104 mmol/L (101-111); CHOL/HDL RATIO 2.8 (<4.4); CHOLESTEROL 219 mg/dL; GFR - MDRD 55 (>89); GLUCOSE 103 mg/dL (70-100); HDL CHOLESTEROL 78 mg/dL; LDL CHOLESTEROL,CALCULATED 122 mg/dL; LDL/HDL RATIO 1.6 (<4.4); POTASSIUM 4.5 mmol/L (3.5-5.0); SODIUM 140 mmol/L (135-145); TOTAL PROTEIN 7.4 g/dL (6.7-8.2); TRIGLYCERIDES 97 mg/dL; VLDL CHOLESTEROL 19 mg/dL
== END 2021-01-09 08:10 | disposition home or self-care (01) ==
LOC: LAB.S 08:09
PROVIDERS: ATTEND Nurse Practitioner Family
DX: E78.5 Hyperlipidemia, unspecified (principal)
CPT/HCPCS: 36415; 80053; 80061; 83721

== ENCOUNTER 2021-05-08 15:00 | Outpatient (CLI) | payer MEDICARE, OTHER ==
[2021-05-08 20:11] LABS: BILIRUBIN,URINE NEGATIVE (NEGATIVE); GLUCOSE, URINE (UA) NEGATIVE (NEGATIVE); KETONES,URINE (UA) NEGATIVE (NEGATIVE); LEUKOCYTE ESTERASE, URINE LARGE (NEGATIVE); NITRITE,URINE NEGATIVE (NEGATIVE); OCCULT BLOOD,URINE TRACE-INTA (NEGATIVE); PROTEIN,URINE NEGATIVE (NEGATIVE); UROBILINOGEN,URINE 0.2 (NORMAL) E.U./dL (NORMAL)
[2021-05-08 20:31] LABS: CLARITY,URINE CLOUDY (CLEAR)
[2021-05-08 20:38] LABS: BACTERIA,URINE Few /HPF (None Seen); RBC,URINE 0-5 /HPF (0-5); SQUAMOUS EPITHELIAL CELL,UR FEW Squamous (<= Few); WBC,URINE >25 /HPF (0-5)
== END 2021-05-08 15:01 | disposition home or self-care (01) ==
LOC: LAB.S 15:00
PROVIDERS: ATTEND Nurse Practitioner
DX: R35.1 Nocturia (principal); R35.0 Frequency of micturition
CPT/HCPCS: 81001; 87077; 87086; 87181

== ENCOUNTER 2021-08-23 15:52 | Outpatient (CLI) | payer MEDICARE, OTHER ==
[2021-08-23 20:27] LABS: THYROID STIMULATING HORMONE 0.6 uIU/mL (0.34-5.60)
[2021-08-23 20:31] LABS: FREE T4 (FREE THYROXINE) 0.94 ng/dL (0.58-1.64)
== END 2021-08-23 15:53 | disposition home or self-care (01) ==
LOC: LAB.S 15:52
PROVIDERS: ATTEND Internal Medicine
DX: E03.9 Hypothyroidism, unspecified (principal)
CPT/HCPCS: 36415; 84439; 84443

== ENCOUNTER 2022-01-21 11:33 | Outpatient (CLI) | payer MEDICARE, OTHER ==
[2022-01-21 15:07] LABS: BILIRUBIN,URINE NEGATIVE (NEGATIVE); GLUCOSE, URINE (UA) NEGATIVE (NEGATIVE); KETONES,URINE (UA) NEGATIVE (NEGATIVE); LEUKOCYTE ESTERASE, URINE NEGATIVE (NEGATIVE); NITRITE,URINE NEGATIVE (NEGATIVE); OCCULT BLOOD,URINE NEGATIVE (NEGATIVE); PROTEIN,URINE NEGATIVE (NEGATIVE); UROBILINOGEN,URINE 0.2 (NORMAL) E.U./dL (NORMAL)
[2022-01-21 15:08] LABS: CLARITY,URINE CLEAR (CLEAR)
[2022-01-21 15:23] LABS: BACTERIA,URINE None Seen /HPF (None Seen); RBC,URINE None Seen /HPF (0-5); SQUAMOUS EPITHELIAL CELL,UR RARE Squamous (<= Few); WBC,URINE 0-3 /HPF (0-5)
== END 2022-01-21 11:34 | disposition home or self-care (01) ==
LOC: LAB.S 11:33
PROVIDERS: ATTEND Nurse Practitioner
DX: R82.90 Unspecified abnormal findings in urine (principal)
CPT/HCPCS: 81001; 81003; 87086

== ENCOUNTER 2022-10-15 08:57 | Outpatient (CLI) | payer MEDICARE ==
[2022-10-15 15:18] LABS: BASOPHILS # (AUTO) 0.1 10^3/uL (0.0-0.1); BASOPHILS % (AUTO) 1.5 %; EOSINOPHILS # (AUTO) 0.2 10^3/uL (0.0-0.7); EOSINOPHILS % (AUTO) 4.4 %; HCT - HEMATOCRIT 39.1 % (37.0-47.0); HGB - HEMOGLOBIN 12.9 g/dL (12.0-16.0); LYMPHOCYTES # (AUTO) 2.1 10^3/uL (1.5-3.5); LYMPHOCYTES % (AUTO) 45.6 %; MEAN CORPUSCULAR HEMOGLOBIN 29.7 pg (27.0-31.0); MEAN CORPUSCULAR VOLUME 90.1 fL (81.0-99.0); MEAN PLATELET VOLUME 9.9 fL (7.9-10.8); MONOCYTES # (AUTO) 0.5 10^3/uL (0.0-1.0); MONOCYTES % (AUTO) 10.5 %; NEUTROPHILS # (AUTO) 1.7 10^3/uL (1.5-6.6); NEUTROPHILS % (AUTO) 37.8 %; PLT - PLATELET COUNT 254 10^3/uL (130-450); RED BLOOD COUNT 4.34 10^6/uL (4.20-5.40); RED CELL DISTRIBUTION WIDTH 13.4 % (12.0-15.0); WHITE BLOOD COUNT 4.6 x10^3/uL (4.8-10.8)
[2022-10-15 15:52] LABS: ALBUMIN 4.2 g/dL (3.2-5.5); ALBUMIN/GLOBULIN RATIO 1.4 (1.0-2.2); ALKALINE PHOSPHATASE 49 IU/L (42-121); ALT ALANINE AMINOTRANSFERASE 28 IU/L (10-60); AST ASPARTATE AMINOTRANSFERASE 25 IU/L (10-42); BILIRUBIN,TOTAL 0.7 mg/dL (0.2-1.0); BUN - BLOOD UREA NITROGEN 14 mg/dL (6-20); CALCIUM 9.2 mg/dL (8.5-10.3); CARBON DIOXIDE - CO2 29 mmol/L (21-32); CHLORIDE 103 mmol/L (101-111); CHOL/HDL RATIO 3.2 (<4.4); CHOLESTEROL 215 mg/dL; CREATININE 0.9 mg/dL (0.4-1.0); GFR - MDRD 61 (>89); GLUCOSE 108 mg/dL (70-100); HDL CHOLESTEROL 68 mg/dL; LDL CHOLESTEROL,CALCULATED 124 mg/dL; LDL/HDL RATIO 1.8 (<4.4); POTASSIUM 4.2 mmol/L (3.5-5.0); SODIUM 139 mmol/L (135-145); TOTAL PROTEIN 7.2 g/dL (6.7-8.2); TRIGLYCERIDES 114 mg/dL; VLDL CHOLESTEROL 23 mg/dL
[2022-10-15 16:01] LABS: ESTIMATED AVERAGE GLUCOSE 111 mg/dL (70-100); HEMOGLOBIN A1c% 5.5 % (4.27-6.07)
== END 2022-10-15 08:58 | disposition home or self-care (01) ==
LOC: LAB.S 08:57
PROVIDERS: ATTEND Internal Medicine
DX: E78.5 Hyperlipidemia, unspecified (principal); R73.9 Hyperglycemia, unspecified; K21.9 Gastro-esophageal reflux disease without esophagitis
CPT/HCPCS: 36415; 80053; 80061; 83036; 83721; 85025

== ENCOUNTER 2023-01-01 08:00 | Outpatient (CLI) | payer MEDICARE ==
[2023-01-01 20:31] LABS: BILIRUBIN,URINE NEGATIVE (NEGATIVE); GLUCOSE, URINE (UA) NEGATIVE (NEGATIVE); KETONES,URINE (UA) NEGATIVE (NEGATIVE); LEUKOCYTE ESTERASE, URINE SMALL (NEGATIVE); NITRITE,URINE NEGATIVE (NEGATIVE); OCCULT BLOOD,URINE NEGATIVE (NEGATIVE); PH,URINE 5.5 PH (5.0-7.5); PROTEIN,URINE NEGATIVE (NEGATIVE); UROBILINOGEN,URINE 0.2 (NORMAL) E.U./dL (NORMAL)
[2023-01-01 20:32] LABS: CLARITY,URINE CLOUDY (CLEAR)
[2023-01-01 21:07] LABS: BACTERIA,URINE Rare /HPF (None Seen); RBC,URINE None Seen /HPF (0-5); SQUAMOUS EPITHELIAL CELL,UR RARE Squamous (<= Few); WBC,URINE >25 /HPF (0-5)
== END 2023-01-01 23:59 | disposition home or self-care (01) ==
LOC: LAB.S 08:00
PROVIDERS: ATTEND Emergency Medicine
DX: R35.0 Frequency of micturition (principal)
CPT/HCPCS: 81001; 87086

== ENCOUNTER 2023-04-06 08:00 | Outpatient (CLI) | payer MEDICARE | END 2023-04-06 23:59 | disposition home or self-care (01) | LOC: LAB.S 08:00 | PROVIDERS: ATTEND Physician Assistant Medical | DX: N39.0 Urinary tract infection, site not specified (principal) | CPT/HCPCS: 87077; 87086; 87181 ==

== ENCOUNTER 2023-05-06 08:00 | Outpatient (CLI) | payer MEDICARE | END 2023-05-06 08:01 | disposition home or self-care (01) | LOC: LAB.S 08:00 | PROVIDERS: ATTEND Registered Nurse | DX: R05.1 Acute cough (principal); J34.89 Other specified disorders of nose and nasal sinuses ==